=== PATIENT | female | born 1995 | race American Indian/Alaskan Native ===

== ENCOUNTER 2018-01-19 02:53 | Emergency (ER) | payer MEDICAID | END 2018-01-19 10:54 | disposition left against medical advice (07) | LOC: ED 02:53 | DX: N93.9 Abnormal uterine and vaginal bleeding, unspecified (principal); Z53.21 Procedure and treatment not carried out due to patient leaving prior to being seen by health care provider ==

== ENCOUNTER 2018-01-19 03:18 | Outpatient (CLI) | payer MEDICAID ==
[2018-01-19 03:33] VITALS: BP 121/60
--- NOTE | 2018-01-19 06:20 | Ultrasound Report ---
FINAL REPORT PROCEDURE: US OB FOLLOW UP TECHNIQUE: Real-time limited sonographic examination was performed for evaluation of placenta, amniotic fluid volume for each fetus with image documentation (1 or more fetuses). CPT 34771 HISTORY: Vaginal bleeding COMPARISON: No prior studies are available for comparison. FINDINGS: A single fetus is in a vertex presentation. The placenta is along the anterior aspect of the uterus. heart rate 164 beats per minute. Four-quadrant amniotic fluid volume is 11.5 centimeters. Average uterine age 24 weeks 1 day based on the following measurements, BPD 6.1, HC 22, AC 20, FL 4.3 centimeters. The estimated date confinement is 05/10/2018 IMPRESSION: There is a single fetus in a vertex presentation with a gestational age of 24 weeks 1 day The placenta is along the anterior uterus with no evidence of abruption or previa.
--- NOTE | 2018-01-19 07:00 | Event Note ---
Date: 01/19/18 22 year old presents at 23 weeks, 6 days gestation complaining of a small amount of vaginal bleeding after intercourse. Patient states she noticed the blood immediately after IC and it has lessened since then. No active bleeding now. Patient denies leaking of fluid, abdominal pain, or contractions. Patient reports active movement. Patient denies falls or abdominal trauma. Patient denies urinary symptoms. Patient states she is a patient of Dr. Rankin but has an appointment to see Dr. Gutierrez for her next visit. Patient denies any complications with this or any health problems. Patient is well appearing, A&O, and her VS are stable. Abdomen is soft, nontender. No contractions noted or palpated. SSE performed. Small amount of thick pink discharge noted in posterior fornix; no active bleeding seen. No leaking of fluid seen. SVE: cervix is closed and thick and posterior. US shows FHR of 164 bpm, DAMIEN 11.5 cm, no evidence of previa or abruption, and EGA of 24 weeks, 1 day. Patient declines CBC or other labs. Discussed with patient possible etiologies for the bleeding. Explained most likely from recent IC. Advised pt. to avoid IC and to follow up with her primary OB today. Advised patient re: warning signs and signs of PTL. Advised pt. to pay attention to movements daily and to come in immediately if movements are decreased, if she has any more vaginal bleeding, if she has any abdominal pain or contractions, or for any other problems. Patient voiced understanding of instructions.
== END 2018-01-19 06:42 | disposition home or self-care (01) ==
LOC: TRG 03:18
PROVIDERS: ATTEND Obstetrics & Gynecology
DX: O47.02 False labor before 37 completed weeks of gestation, second trimester (principal); Z3A.23 23 weeks gestation of pregnancy
CPT/HCPCS: 59025; 76816